=== PATIENT | male | born 1945 ===

== ENCOUNTER → 2023-12-08 11:02 | Outpatient (REF) | payer OTHER, SELFPAY ==
[2023-12-08 12:24] LABS: ALT (SGPT) 61 U/L (0-50); AST (SGOT) 44 U/L (17-59); Albumin 4.2 g/dl (3.5-5.0); Alkaline Phosphatase 127 U/L (38-126); Blood Urea Nitrogen 22 mg/dl (9-20); Calcium 9.4 mg/dl (8.4-10.2); Carbon Dioxide 25 mmol/L (22-30); Chloride 104 mmol/L (98-107); Glucose 85 mg/dl (70-99); HDL Cholesterol 50 mg/dl; LDL Cholesterol, Calculated 70 mg/dl; Potassium 4.1 mmol/L (3.5-5.1); Sodium 137 mmol/L (135-145); Total Bilirubin 0.8 mg/dl (0.2-1.3); Total Cholesterol 135 mg/dl (50-199); Total Protein 7.3 g/dl (6.3-8.2); Triglyceride 79 mg/dl (10-149); Very Low Density Lipoprotein 15 mg/dl (0-30); eGFR > 60.00
[2023-12-08 12:42] LABS: TSH 1.85 uIU/ml (0.47-4.68)
[2023-12-08 13:58] LABS: Glycohemoglobin (HgbA1c) 6.7 % (4.0-5.6)
== END ==
LOC: OLABPATH 11:02
PROVIDERS: ATTENDING PHYSICIAN Internal Medicine Cardiovascular Disease; FAMILY PHYSICIAN Internal Medicine; REFERRING PHYSICIAN Internal Medicine Endocrinology, Diabetes & Metabolism
DX: E11.65 Type 2 diabetes mellitus with hyperglycemia (principal); Z79.4 Long term (current) use of insulin; E78.5 Hyperlipidemia, unspecified
CPT/HCPCS: 36415; 80053; 80061; 82565; 83036; 84443

== ENCOUNTER → 2024-05-30 10:33 | Outpatient (REF) | payer OTHER, SELFPAY ==
[2024-05-30 12:19] LABS: ALT (SGPT) 42 U/L (0-50); AST (SGOT) 33 U/L (17-59); Albumin 3.4 g/dl (3.5-5.0); Alkaline Phosphatase 107 U/L (38-126); Blood Urea Nitrogen 18 mg/dl (9-20); Calcium 9.2 mg/dl (8.4-10.2); Carbon Dioxide 24 mmol/L (22-30); Chloride 104 mmol/L (98-107); Glucose 101 mg/dl (70-99); HDL Cholesterol 41 mg/dl; LDL Cholesterol, Calculated 54 mg/dl; Potassium 4.3 mmol/L (3.5-5.1); Sodium 139 mmol/L (135-145); Total Bilirubin 0.5 mg/dl (0.2-1.3); Total Cholesterol 108 mg/dl (50-199); Total Protein 5.9 g/dl (6.3-8.2); Triglyceride 65 mg/dl (10-149); Very Low Density Lipoprotein 13 mg/dl (0-30); eGFR > 60.00
[2024-05-30 13:15] LABS: Glycohemoglobin (HgbA1c) 7.2 % (4.0-5.6)
== END ==
LOC: OLABPATH 10:33
PROVIDERS: ATTENDING PHYSICIAN Internal Medicine Cardiovascular Disease; FAMILY PHYSICIAN Internal Medicine; OTHER PHYSICIAN Internal Medicine Endocrinology, Diabetes & Metabolism
DX: Z95.5 Presence of coronary angioplasty implant and graft (principal); E11.65 Type 2 diabetes mellitus with hyperglycemia; Z79.4 Long term (current) use of insulin
CPT/HCPCS: 36415; 80053; 80061; 83036; 84443

== ENCOUNTER → 2024-06-11 11:15 | Outpatient (REF) | payer OTHER, SELFPAY ==
[2024-06-11 13:18] LABS: INR 1.03; PT 13.5 Sec (11.4-14.6)
[2024-06-11 13:26] LABS: % Basophils 0.6 % (0-2); % Eosinophils 1.9 % (0-6); % Immature Granulocytes 0.4 % (0-0.5); % Lymphocytes 20.7 % (20.5-51.1); % Monocytes 7.5 % (1.7-9.3); % Neutrophils 68.9 % (42.2-75.2); Absolute Basophils 0.1 10^3/uL (0-0.2); Absolute Eosinophils 0.2 10^3/uL (0-0.7); Absolute Lymphocytes 1.7 10^3/uL (1.2-3.4); Absolute Monocytes 0.6 10^3/uL (0.1-0.6); Absolute Neutrophils 5.8 10^3/uL (1.4-6.5); Hematocrit 41.1 % (39.0-52.0); Hemoglobin 13.9 g/dL (13.0-18.0); Mean Corp Hgb Conc. 33.8 g/dL (33.0-37.0); Mean Corpuscular Hgb 34.2 pg (27.0-31.0); Mean Platelet Volume 10.4 fL (7.4-10.4); Nucleated Red Blood Cells % 0 % (-); Platelet Count 235 10^3/uL (130-400); Red Blood Cell Count 4.07 10^6/uL (4.70-6.10); Red Cell Dist. Width 13.4 % (11.5-14.5); White Blood Cell Count 8.4 10^3/uL (4.8-10.8)
== END ==
LOC: OLABPATH 11:15
PROVIDERS: ATTENDING PHYSICIAN Internal Medicine
DX: F03.90 Unspecified dementia, unspecified severity, without behavioral disturbance, psychotic disturbance, mood disturbance, and anxiety (principal); E08.9 Diabetes mellitus due to underlying condition without complications
CPT/HCPCS: 36415; 85025; 85610

== ENCOUNTER → 2024-06-20 09:41 | Outpatient (REF) | payer OTHER, SELFPAY ==
[2024-06-20 10:09] LABS: % Basophils 0.8 % (0-2); % Eosinophils 2.4 % (0-6); % Immature Granulocytes 0.1 % (0-0.5); % Lymphocytes 21.3 % (20.5-51.1); % Monocytes 8.8 % (1.7-9.3); % Neutrophils 66.6 % (42.2-75.2); Absolute Basophils 0.1 10^3/uL (0-0.2); Absolute Eosinophils 0.2 10^3/uL (0-0.7); Absolute Lymphocytes 1.8 10^3/uL (1.2-3.4); Absolute Monocytes 0.7 10^3/uL (0.1-0.6); Absolute Neutrophils 5.6 10^3/uL (1.4-6.5); Hematocrit 37.7 % (39.0-52.0); Hemoglobin 12.8 g/dL (13.0-18.0); Mean Corpuscular Hgb 33.6 pg (27.0-31.0); Mean Platelet Volume 10.5 fL (7.4-10.4); Nucleated Red Blood Cells % 0 % (-); Platelet Count 221 10^3/uL (130-400); Red Blood Cell Count 3.81 10^6/uL (4.70-6.10); Red Cell Dist. Width 13.3 % (11.5-14.5); White Blood Cell Count 8.4 10^3/uL (4.8-10.8)
[2024-06-20 10:10] LABS: INR 1.03; PT 13.6 Sec (11.4-14.6)
== END ==
LOC: OLABPATH 09:41
PROVIDERS: ATTENDING PHYSICIAN Internal Medicine
DX: F03.90 Unspecified dementia, unspecified severity, without behavioral disturbance, psychotic disturbance, mood disturbance, and anxiety (principal); E08.9 Diabetes mellitus due to underlying condition without complications
CPT/HCPCS: 36415; 85025; 85610

== ENCOUNTER → 2024-11-15 10:28 | Outpatient (REF) | payer OTHER, SELFPAY ==
[2024-11-15 11:59] LABS: % Basophils 0.7 % (0-2); % Eosinophils 3.9 % (0-6); % Immature Granulocytes 0.4 % (0-0.5); % Lymphocytes 18.9 % (20.5-51.1); % Monocytes 6.6 % (1.7-9.3); % Neutrophils 69.5 % (42.2-75.2); Absolute Basophils 0.1 10^3/uL (0-0.2); Absolute Eosinophils 0.4 10^3/uL (0-0.7); Absolute Lymphocytes 1.9 10^3/uL (1.2-3.4); Absolute Monocytes 0.7 10^3/uL (0.1-0.6); Absolute Neutrophils 6.9 10^3/uL (1.4-6.5); Hematocrit 44.6 % (39.0-52.0); Hemoglobin 13.9 g/dL (13.0-18.0); Mean Corp Hgb Conc. 31.2 g/dL (33.0-37.0); Mean Corpuscular Hgb 32.8 pg (27.0-31.0); Mean Corpuscular Volume 105.2 fL (80.0-94.0); Mean Platelet Volume 11.3 fL (7.4-10.4); Nucleated Red Blood Cells % 0 % (-); Platelet Count 171 10^3/uL (130-400); Red Blood Cell Count 4.24 10^6/uL (4.70-6.10); Red Cell Dist. Width 13.6 % (11.5-14.5); White Blood Cell Count 9.9 10^3/uL (4.8-10.8)
[2024-11-15 12:02] LABS: ALT (SGPT) 72 U/L (0-50); AST (SGOT) 37 U/L (17-59); Albumin 3.8 g/dl (3.5-5.0); Alkaline Phosphatase 91 U/L (38-126); Blood Urea Nitrogen 26 mg/dl (9-20); Carbon Dioxide 24 mmol/L (22-30); Chloride 110 mmol/L (98-107); Glucose 135 mg/dl (70-99); Sodium 144 mmol/L (135-145); Total Bilirubin 1.2 mg/dl (0.2-1.3); Total Protein 6.4 g/dl (6.3-8.2); eGFR > 60.00
== END ==
LOC: OLABPATH 10:28
PROVIDERS: ATTENDING PHYSICIAN Internal Medicine
DX: I10 Essential (primary) hypertension (principal); F02.A0 Dementia in other diseases classified elsewhere, mild, without behavioral disturbance, psychotic disturbance, mood disturbance, and anxiety; E78.5 Hyperlipidemia, unspecified
CPT/HCPCS: 36415; 80053; 85025

== ENCOUNTER 2024-12-04 06:07 | Inpatient (IN) | payer OTHER, SELFPAY ==
[2024-12-04 03:53] VITALS: BMI 24.7
[2024-12-04 04:00] VITALS: BP 117/64
[2024-12-04 04:34] LABS: Urine Albumin Negative (Neg - Trace); Urine Bilirubin Negative (Negative); Urine Character Clear (Clear); Urine Color Yellow; Urine Glucose 4+ (Negative); Urine Ketone 3+ (Negative); Urine Leukocyte Negative (Negative); Urine Nitrite Negative (Negative); Urine Occult Blood Negative (Negative); Urine Urobilinogen Negative (Neg - 1+)
[2024-12-04 04:35] LABS: % Basophils 0.5 % (0-2); % Immature Granulocytes 0.4 % (0-0.5); % Lymphocytes 9.7 % (20.5-51.1); % Monocytes 2.8 % (1.7-9.3); % Neutrophils 86.6 % (42.2-75.2); Absolute Lymphocytes 0.8 10^3/uL (1.2-3.4); Absolute Monocytes 0.2 10^3/uL (0.1-0.6); Hematocrit 42.4 % (39.0-52.0); Hemoglobin 14.1 g/dL (13.0-18.0); Mean Corp Hgb Conc. 33.3 g/dL (33.0-37.0); Mean Corpuscular Hgb 33.3 pg (27.0-31.0); Mean Platelet Volume 9.6 fL (7.4-10.4); Nucleated Red Blood Cells % 0 % (-); Platelet Count 260 10^3/uL (130-400); Red Blood Cell Count 4.24 10^6/uL (4.70-6.10); Red Cell Dist. Width 13.7 % (11.5-14.5); White Blood Cell Count 8.1 10^3/uL (4.8-10.8)
[2024-12-04 04:48] LABS: COVID-19 Antigen Negative (Negative)
--- NOTE | 2024-12-04 04:56 | ED.GENMED ---
History of Present Illness
General
Chief Complaint: Vomiting Blood
Source: family ( Lennie and nurse Coco from [facility]), ambulance crew and intermediate records
Exam Limitations: altered mental status and dementia
Time Seen by Provider: 12/04/24 03:52
Nursing documentation reviewed up to this point in time: agreed with
History of Present Illness
History of Present Illness:
Pleasantly demented 78-year-old male from [facility] presents to the emergency department after vomiting 'coffee ground emesis '. I spoke with Coco the nurse caring for him at [facility]. She stated that he had a one-time episode of
brownish-red vomit that looked like coffee grounds. Patient has advanced dementia and according to patient's advanced directive, he is comfort measures only without any significant interventions. I spoke with Lennie who allowed for IV fluids
and Protonix. She also will allow for anything that makes his stay more comfortable. She does not want any imaging at this point.
Review of Systems
Review of Systems
Allergies reviewed?: Yes
Unable to obtain full review of systems at this time due to: dementia
Other source history: family, intermediate, ambulance crew and transfer record
All Other Systems: Not applicable
ABD/GI: Reports vomiting; Denies bloody stools or black stools
Phy Exam
General Physical Exam
General Presentation: mild distress
General age: appears older than age
General Skin: warm and dry
General Habitus: elderly and frail
General Mental: confused and usual mental status (According to )
General Hydration: dry mucous membranes
Cardiovascular Exam
Cardiovascular Exam: tachycardia
Pulmonary Exam
Pulmonary Exam: lungs clear and no respiratory distress
Gastrointestinal Exam
Guaiac Status: negative
Neurological Exam
Neurological Exam: alert and oriented x3
Musculoskeletal Exam
Musculoskeletal Exam: full ROM
Skin Exam
Skin Exam: normal color and warm/dry
Psychiatric Exam
Psychiatric Exam: labile
Sepsis
Sepsis Screening
Sepsis Assessment: Sepsis
Sepsis Screen
Sepsis Screen: Sepsis
Date: 12/05/24
Time: 22:03
Course
Orders/Labs/Results
Orders:
Orders
12/04/24 04:08
Cardiac Monitoring- Treatment ONCE
IV Insert/Care/Rem.- Treatment PRN
Straight cath- Treatment ONCE
O2 Therapy [RESP] Urgent
Titrate/Wean O2 to maintain O2 sat greater than (%): 93
Special Instructions: TO MAINTAIN CONTINUOUS O2 SATS > OR = 93%
Pulse Ox/cont/shift [RESP] Urgent
Quantity: 1
Special Instructions: CONTINUOUS
12/04/24 04:10
Hemetest Stools As Directed
12/04/24 04:13
Blood Culture Urgent
FERNANDO Source: Blood/Venous
Specimen Description:
12/04/24 04:15
COVID-19 Antigen Urgent
Source: Nasal Swab
Complete Blood Count/With Diff Urgent
Comprehensive Metabolic Panel Urgent
Lactic Acid Q4H
Comment: ON ICE, CANCEL 2ND ORDER IF FIRST LACTIC ACID LEVEL <2
Urinalysis Reflex To Culture Urgent
Date Specimen was Collected: 12/04/24
Time Specimen was Collected: 04:08
Influenza A+B Rapid Molecular Urgent
FERNANDO Source: Nasal Swab
Specimen Description:
12/04/24 04:19
Blood Culture Urgent
FERNANDO Source: Blood/Venous
Specimen Description:
12/04/24 05:03
Pantoprazole 80 mg/100 ml Nss [Protonix] 80 mg in 100 ml IV NOW
Pantoprazole [Protonix IV] 80 mg IV NOW STA
12/04/24 05:25
Admit/Transfer Patient As Directed
Co-Sign Provider:
Level of Care: Inpatient admission
Assign to:: Medical/Surgical
Physician / Group: Arsalan
Diagnosis: UGIB
Reason for Hospitalization: UGIB
Expected length of stay greater than two midnights?: Yes
ELOS- Estimated Length of Stay in days: 2
I certify the patient meets the requirements for IP care: Yes
PRN Pain Medication Management As Directed
May give lesser potent ordered pain med per pt: Yes
preference::
Protocol:: Medication orders for pain may be administered in a
manner that supports deferring to patient preference
when the pt is:
- Requesting an ordered lesser potent pain medication.
Least to most potent pain medications are defined
as: acetaminophen < NSAID < tramadol < opioids
(morphine, oxycodone, hydromorphone).
- Requesting a lesser dose of the same medication IF
ORDERED.
- Requesting a less intrusive route of administration
if both routes are prescribed by the provider (PO <
IV).
12/04/24 05:26
Code Status As Directed
Resuscitation Status: Do not resuscitate
Reached after discussion with pt or family/Healthcare POA: Yes
12/04/24 05:27
DNR Bracelet Application ONCE
12/04/24 Breakfast
Clear Liquid
At Your Request: Non-Participating
12/04/24 08:14
Acetaminophen [Tylenol] 650 mg PO Q6HPRN PRN
Lactated Ringers [Lr] 1,000 ml IV 125 mls/hr
Lorazepam [Ativan] 0.5 mg PO Q6HPRN PRN
Memantine HCl [Namenda] 10 mg PO BID
12/04/24 08:14
Case Management Consult ONCE
Case Management Consult: Discharge Planning
Activity As Directed
Activity Level: Ambulate
With Assistance
Bladder Scan As Directed
Follow Bladder Retention/Intermittent Cath Algorithm?: Yes
PRN if no void in __ hours: 6
Frequency: Per Retention Algorithm
If Bladder Scan Result >: 400
then:: Straight cath
I/O [Intake/ Output] As Directed
Frequency: Per unit guidelines
Pneumatic Compression Sleeves As Directed
Type: Knee high
Straight Cath As Directed
Frequency: Per Retention Algorithm
Additional Instructions: straight cath as needed per acute urinary retention algorithm for 24 hrs
Additional Instructions: for bladder scan greater than 400 mL
Vital Signs As Directed
Frequency: Per unit guidelines
Oxygen Therapy [O2 Therapy] [RESP] Routine
Titrate/Wean O2 to maintain O2 sat greater than (%): 94
DX Deep Vein Thrombosis Video Routine
12/04/24 20:00
Pantoprazole [Protonix IV] 40 mg IV BID
12/04/24 22:00
insulin degludec [Tresiba FlexTouch U-200] 10 unit SC HS
12/05/24 06:32
Basic Metabolic Panel IN AM
Complete Blood Count/No Diff IN AM
Abnormal Lab Results
12/04/24
04:15
RBC 4.24 L 10^6/uL
(4.70-6.10)
MCV 100.0 H fL
(80.0-94.0)
MCH 33.3 H pg
(27.0-31.0)
Absolute Neuts (auto) 7.0 H 10^3/uL
(1.4-6.5)
Absolute Lymphs (auto) 0.8 L 10^3/uL
(1.2-3.4)
Neutrophils % 86.6 H %
(42.2-75.2)
Lymphocytes % 9.7 L %
(20.5-51.1)
BUN 35 H mg/dl
(9-20)
Glucose 185 H mg/dl
(70-99)
Lactic Acid 2.3 H mmol/L
(0.7-2.0)
Urine Ketones 3+ A
(Negative)
Urine Glucose 4+ A
(Negative)
12/04/24 04:15
12/04/24 04:15
Vital Signs
Initial and Last Documented VS:
Initial Vital Signs
Temp Pulse Resp Pulse Ox
100.8 F H 125 31 89
12/04/24 03:53 12/04/24 03:53 12/04/24 03:53 12/04/24 03:53
Last Documented Vital Signs
Temp Pulse Resp BP Pulse Ox
98.0 F 80 16 136/65 94
12/05/24 15:12 12/05/24 15:12 12/05/24 15:12 12/05/24 15:12 12/05/24 15:12
*Critical Care Note
Total Time (30-74mins, 75-104mins- exclusive of procedures): Not Applicable
Update Note
Update Note:
I had a conversation with patient's Lennie, verified by nursing that states that she wants him to be comfort measures only. She does not want any invasive testing or imaging. She is okay with fluids and Protonix.
ED Attending Note
-
Portions of this chart may have been created with voice recognition software.� Occasional wrong word or��sound alike� substitutions may have occurred due to the inherent limitations of voice recognition software.
Discharge Plan
Departure
Patient Disposition: Admit
Date of Disposition: 12/04/24
Time of Disposition: 05:00
Presentation/result/management discussed w/ accepting MD/DO: Hospitalist
Discharge Problem:
Acute upper GI bleeding, Comfort measures only status, DNR (do not resuscitate)
Interventions
Interventions:
*Risk Screen - Suicide Last Done: 12/04/24 03:53
*General Assessment Last Done: 12/04/24 03:53
*Neglect/Abuse Screening Last Done: 12/04/24 03:53
ED- Fall Risk Assessment Last Done: 12/04/24 03:53
*ED COVID-19 Vaccine History Last Done: 12/04/24 03:53
*Nursing Disposition Last Done: 12/04/24 18:46
RE-Kvsghg-Murnuaosbp Assessment Last Done: 12/04/24 04:20
ED- Cardiac Assessment Last Done: 12/04/24 04:20
ED- Pulmonary Assessment Last Done: 12/04/24 04:20
Discharge Date and Time
Discharge Date/Time: 12/04/24 18:46
[2024-12-04 05:00] VITALS: BP 118/68
[2024-12-04 05:02] LABS: ALT (SGPT) 47 U/L (0-50); AST (SGOT) 33 U/L (17-59); Albumin 3.8 g/dl (3.5-5.0); Alkaline Phosphatase 116 U/L (38-126); Blood Urea Nitrogen 35 mg/dl (9-20); Calcium 9.5 mg/dl (8.4-10.2); Carbon Dioxide 22 mmol/L (22-30); Chloride 100 mmol/L (98-107); Estimated Creatinine Clearance 58 ml/min; Glucose 185 mg/dl (70-99); Lactic Acid 2.3 mmol/L (0.7-2.0); Potassium 3.8 mmol/L (3.5-5.1); Sodium 142 mmol/L (135-145); Total Protein 6.7 g/dl (6.3-8.2); eGFR > 60.00
--- NOTE | 2024-12-04 05:08 | HPS.HSE ---
Family Physician
-
Family Physician: NOT KNOW UNKNOWN - PT DOES
Chief Complaint
-
Vomiting Up Blood
History of Present Illness
Patient is a 78y M with PMH significant for senile dementia / aphasia who presents to ED for evaluation of 'coffee ground emesis' noted at [place]. History obtained from ED staff / NH record. Patient reportedly had a single episode of brownish-red
emesis this evening. Patient is DNR / DNH; however, he was sent to the ED for further evaluation. ED physician spoke with who requested IVFs and Protonix but no other specific interventions. No further diagnostics, invasive studies /
procedures, etc.
Patient is non-verbal at baseline and cannot contribute to this history.
Medical History
Past Medical History
Past Medical History: Reports Other
Additional Past Medical History:
Dementia / Aphasia
DM-II
Hypertension
Dyslipidemia
Past Surgical History: Reports Other
Additional Past Surgical History:
Unknown
Social History
Unable to obtain full social history at this time due to: Dementia
Family History
Family History: Unable to Obtain
Allergies / Home Medications
Allergies reflects when Allergies were last updated in [employer].
Home Medications with original date entered in [employer]
Allergy/Medication List:
Allergies
Allergy/AdvReac Type Severity Reaction Status Date / Time
No Known Allergies Allergy Unverified 12/04/24 05:06
Home Medications
acetaminophen 325 mg tablet 650 mg PO Q6H PRN pain/mild fever 12/04/24
aspirin 81 mg tablet,delayed release 81 mg PO DAILY 12/04/24
atorvastatin 80 mg tablet 80 mg PO DAILY 12/04/24
benzonatate 100 mg capsule 100 mg PO TID PRN cough 12/04/24
dulaglutide 0.75 mg/0.5 mL subcutaneous pen injector (Trulicity) 0.75 mg SC QWEEK 12/04/24
empagliflozin 10 mg tablet (Jardiance) 10 mg PO DAILY 12/04/24
glipizide 10 mg tablet 10 mg PO BID 12/04/24
insulin degludec 200 unit/mL (3 mL) subcutaneous pen (Tresiba FlexTouch U-200 insulin) 10 unit SC HS 12/04/24
lorazepam 0.5 mg tablet 0.5 mg PO Q6 PRN anxiety 12/04/24
memantine 10 mg tablet 10 mg PO BID 12/04/24
ondansetron HCl 4 mg tablet 4 mg PO Q4H PRN nausea and vomiting 12/04/24
Review of Systems
-
Unable to obtain full review of systems at this time due to: Dementia
Physical Exam
Vital Signs
Vital Signs
Temp Pulse Resp BP Pulse Ox
100.8 F H 123 26 117/64 93
12/04/24 03:53 12/04/24 04:15 12/04/24 04:15 12/04/24 04:00 12/04/24 04:20
Physical Exam
General: Other (78y M in no apparent distress.)
HEENT: Other (Some residual of dark emesis in the mouth / lips.)
Respiratory: Other (Decreased at bases - diminished effort. No focal W/R/R.)
Cardiac: S1/S2 and Tachycardia; No Murmur
GI: Soft, Non Tender, Non Distended and Normal Bowel Sounds
Musculoskeletal: No Clubbing, No Cyanosis and No Edema
Neuro: Other (Awake. Tracks movement and sound. Does not speak or follow commands.)
Laboratory Results
-
12/04/24 04:15
12/04/24 04:15
Laboratory Results
Lactic Acid Cancelled 12/04/24 08:15
Total Bilirubin 1.0 mg/dl (0.2-1.3) 12/04/24 04:15
AST 33 U/L (17-59) 12/04/24 04:15
ALT 47 U/L (0-50) 12/04/24 04:15
Alkaline Phosphatase 116 U/L (38-126) 12/04/24 04:15
Impression/Plan
-
A/P: Patient is a 78y M with PMH significant for advanced dementia who presented to ED from local [place] for evaluation of dark / coffee ground emesis.
N/V
Possible GI Bleeding / Coffee Ground Emesis
Tachycardia
- Admit for further evaluation and treatment.
- requesting IVFs and Protonix - but no other therapies / evaluations at this time.
- Follow for changes in vital signs.
- Monitor for any evidence of discomfort and treat supportively.
- Case Management evaluation for Hospice evaluation / discussions.
Senile Dementia
- Stable / non-verbal as per baseline.
- Continue current meds including Namenda / PRN lorazepam.
DM-II
- Stable. Hold PO medications.
- Continue basal insulin + SSI.
DVT Prophylaxis: SCDs
Code Status: DNR
[2024-12-04 09:33] VITALS: BP 131/79
[2024-12-04] MEDS: LR 1000 IV ×2 (09:43→18:19)
[2024-12-04] MEDS: TYLENOL 650 MG PO (09:45)
[2024-12-04] MEDS: NAMENDA 10 MG PO ×2 (09:45→21:00)
[2024-12-04] MEDS: PROTONIX IV 80 MG IV (09:47)
[2024-12-04] MEDS: NSS (PRESERVATIVE FREE) 20 ML IV (09:47)
--- NOTE | 2024-12-04 12:50 | CM ---
Addendum entered by Aundrea Goldman RN 12/04/24 15:46:
CM reviewed medical records. Plan for continued supportive treatment at this time and no hospice discussion at this time. CM will continue to follow as needed.
Addendum entered by Aundrea Goldman RN 12/04/24 13:38:
CM spoke with patient's who would be agreeable to hospice at the [facility]. Patient's does have further questions for medical team. CM updated hospitalist.
Addendum entered by Aundrea Goldman RN 12/04/24 13:19:
Adelaida spoke with REYNALDO Patterson from [facility] with update. Yesenia confirmed that [facility]'s preferred Hospice [facility] [phone].
Addendum entered by Aundrea Goldman RN 12/04/24 12:58:
CM left message for to discuss discharge planning options.
Original Note:
ADELAIDA left message for nursing at [facility] to discuss discharge planning.
[2024-12-04 13:12] VITALS: BP 118/68
--- NOTE | 2024-12-04 13:20 | W.PN.UPDATE ---
Update Note
Progress Note Update
Seen and examined independent of overnight physician. Patient with episode of nausea and vomiting at the senior care. Patient spouse at bedside state there is a 'viral bug' at senior care. Multiple members with similar symptoms. Patient
with episode of nausea vomiting and senior care with concern for possible hematemesis. No hematemesis since admitted to hospital. Patient did spike a fever earlier today. Spouse does not want any aggressive measures including any procedures.
Wants patient to be comfortable and agreed for antibiotics, IV fluids and medications if needed.
General: Other (78y M in no apparent distress.)
HEENT: dry mucous membrances
Respiratory: Other (Decreased at bases - diminished effort. No focal W/R/R.)
Cardiac: S1/S2 and Tachycardia; No Murmur
GI: Soft, Non Tender, Non Distended and Normal Bowel Sounds
Musculoskeletal: No Clubbing, No Cyanosis and No Edema
Neuro: Other (Awake. Tracks movement and sound. Does not speak or follow commands.)
A/P: Patient is a 78y M with PMH significant for advanced dementia who presented to ED from local [place] for evaluation of dark / coffee ground emesis.
Nausea, vomiting likely secondary to while gastroenteritis
- Admit for further evaluation and treatment.
- requesting IVFs and Protonix - but no other therapies / evaluations at this time.
- Follow for changes in vital signs.
- Monitor for any evidence of discomfort and treat supportively.
- Trend H&H. Advance to full's.
Severe constipation/fecal impaction
Enema and aggressive bowel regimen started
Fever likely secondary to body ENTERITIS versus aspiration pneumonia
-Chest x-ray noted. Start patient on Unasyn.
Senile Dementia
- Stable / non-verbal as per baseline.
- Continue current meds including Namenda / PRN lorazepam.
DM-II
- Stable. Hold PO medications.
- Continue basal insulin + SSI.
DVT Prophylaxis: SCDs
Code Status: DNR
Discussed with patient's spouse at bedside in detail.
[2024-12-04] MEDS: FLEET MINERAL OIL ENEMA 133 ML RECTAL (14:28)
--- NOTE | 2024-12-04 14:44 | PTCARENOTE ---
Patient having heart rate 127 and rectal temp 99.8. Aguada texted Dr Beckham, no new orders noted.
[2024-12-04] MEDS: UNASYN IV ×2 (15:50→21:00)
[2024-12-04] MEDS: LIPITOR 80 MG PO (18:21)
[2024-12-04 19:45] VITALS: BP 133/80; BMI 24.3
--- NOTE | 2024-12-04 19:52 | PTCARENOTE ---
report called to floor, pt transported without issue
[2024-12-04] MEDS: PROTONIX IV 40 MG IV (21:00)
[2024-12-04] MEDS: NSS (PRESERVATIVE FREE) 10 ML IV (21:00)
[2024-12-04] MEDS: SENOKOT-S 1 TABLET PO (21:20)
[2024-12-04] MEDS: DULCOLAX 10 MG PO (21:36)
[2024-12-04 21:52] LABS: Glucose - Point of Care 262 mg/dl (70-99)
[2024-12-04] MEDS: LANTUS 0.1 UNITS SC (21:52)
[2024-12-05] MEDS: UNASYN IV ×3 (01:24→13:13)
[2024-12-05 03:26] VITALS: BP 140/49
[2024-12-05 06:00] VITALS: BMI 25.4
[2024-12-05] MEDS: NAMENDA 10 MG PO (07:26)
[2024-12-05] MEDS: NSS (PRESERVATIVE FREE) 10 ML IV (07:26)
[2024-12-05] MEDS: SENOKOT-S 1 TABLET PO (07:26)
[2024-12-05] MEDS: PROTONIX IV 40 MG IV (07:26)
[2024-12-05 07:50] VITALS: BP 131/65
[2024-12-05 08:01] LABS: Hematocrit 32.7 % (39.0-52.0); Hemoglobin 11.1 g/dL (13.0-18.0); Mean Corp Hgb Conc. 33.9 g/dL (33.0-37.0); Mean Corpuscular Hgb 34.4 pg (27.0-31.0); Mean Corpuscular Volume 101.2 fL (80.0-94.0); Mean Platelet Volume 9.7 fL (7.4-10.4); Platelet Count 205 10^3/uL (130-400); Red Blood Cell Count 3.23 10^6/uL (4.70-6.10); Red Cell Dist. Width 14.1 % (11.5-14.5); White Blood Cell Count 8.6 10^3/uL (4.8-10.8)
[2024-12-05 08:19] LABS: Glucose - Point of Care 148 mg/dl (70-99)
[2024-12-05 09:05] LABS: Blood Urea Nitrogen 53 mg/dl (9-20); Calcium 8.9 mg/dl (8.4-10.2); Carbon Dioxide 23 mmol/L (22-30); Chloride 115 mmol/L (98-107); Estimated Creatinine Clearance 64 ml/min; Glucose 158 mg/dl (70-99); Potassium 3.6 mmol/L (3.5-5.1); Sodium 146 mmol/L (135-145); eGFR > 60.00
--- NOTE | 2024-12-05 11:33 | W.PN.HOSP.TC ---
Addendum entered and electronically signed by Tito Beckham MD 12/05/24 11:46:
Discussed with patient spouse and regarding patient mild hyponatremia of sodium 146. Per spouse she would like [facility] as she would like to avoid hospital-acquired delirium. Spouse also stated patient has no trouble drinking
liquids and she would encourage him to drink more water. Spouse eager to get patient discharged to [facility] as would like to avoid prolonged hospitalization. Patient's spouse verbalized understanding with the sodium level and would like him to go
[facility] to [facility]. Per CM, SNF can take him back today.
Original Note:
Today's Communication/Plan
-
DC to SNF
P.o. antibiotic
Aggressive bowel regimen
Assessment / Plan
Assessment / Plan
General: Other (78y M in no apparent distress.)
HEENT: dry mucous membrances
Respiratory: Other (Decreased at bases - diminished effort. No focal W/R/R.)
Cardiac: S1/S2 and Tachycardia; No Murmur
GI: Soft, Non Tender, Non Distended and Normal Bowel Sounds
Musculoskeletal: No Clubbing, No Cyanosis and No Edema
Neuro: Other (Awake. Tracks movement and sound. Does not speak or follow commands.)
A/P: Patient is a 78y M with PMH significant for advanced dementia who presented to ED from local [place] for evaluation of dark / coffee ground emesis.
Nausea, vomiting likely secondary to Viral gastroenteritis
- requesting IVFs and Protonix - but no other therapies / evaluations at this time.
- Follow for changes in vital signs.
- Monitor for any evidence of discomfort and treat supportively.
- Mild drop in hemoglobin secondary to dilutional effect. Patient with no gross bleeding. No hematemesis. No melanotic stools. No luminal bleeding noted.
-P er spouse assisted with viral gastroenteritis on the floor.
Severe constipation/fecal impaction
Enema and aggressive bowel regimen started
Patient having bowel movements.
Fever likely secondary to body ENTERITIS versus aspiration pneumonia
-Chest x-ray noted. Start patient on Unasyn. Transition to p.o. Augmentin on discharge.
Senile Dementia
Dysphagia-eats pur�ed diet and assisted
- Stable / non-verbal as per baseline.
- Continue current meds including Namenda / PRN lorazepam.
DM-II
- Stable. Hold PO medications.
- Continue basal insulin + SSI.
DVT Prophylaxis: SCDs
Code Status: DNR
Discussed with patient's spouse at bedside in detail on daily basis.
Dispo back to SNF. Medically stable. Spouse agreed and verbalized understanding for discharge.
More than 30 minutes spent in discharge including
Final examination of the patient
Summarizing hospital stay
Instructions for continuing care to all relevant caregivers
Preparation of discharge records, prescriptions, and referral forms
Total time spent (in minutes): 55
Anticipated Discharge: Today
Subjective/Interval History
-
Date of Service: December 05, 2024
No episode of nausea or vomiting
No gross melanotic stools
Having bowel movement
On room air
Afebrile
Objective Data
-
Labs:
Laboratory Results
12/05/24 12/05/24
00:30 06:32
WBC 8.6
Hgb Cancelled 11.1 L D
Hct Cancelled 32.7 L
Plt Count 205 D
Sodium 146 H
Potassium 3.6
Chloride 115 H
Carbon Dioxide 23
BUN 53 H
Creatinine 1.0
Glucose 158 H
Calcium 8.9
Vital Signs:
Vital Signs
Temp Pulse Resp BP Pulse Ox
98.7 F 86 16 131/65 95
12/05/24 07:50 12/05/24 07:50 12/05/24 07:50 12/05/24 07:50 12/05/24 10:32
I&O
12/04/24 12/05/24 12/06/24
06:59 06:59 06:59
Intake Total 440 / 440
Balance 440 / 440
Data Reviewed
-
Total Time Spent with Patient (in minutes): 55
--- NOTE | 2024-12-05 11:37 | CM ---
Reviewed the chart notes. CM continues to be available to patient/family and is monitoring medical plan for needs at discharge.
Plan: Discharge back to [facility] today.
Call report to: [phone] - ask for Federica
Fax report to: [phone]
Medical and necessity forms on chart.
--- NOTE | 2024-12-05 11:40 | W.DCSUMMARY ---
Discharge Summary
Discharge Data
Date of Admission: 12/04/24
Date of Discharge: 12/05/24
-
Pending Results: No
Hospital Course
78-year-old male past medical history of advanced dementia, dysphagia, diabetes mellitus, hyperlipidemia, presenting from [facility] with complaints of dark coffee-ground emesis. Patient did not have any episode of hematemesis. Patient
hemoglobin was 10 and found to be stable. Patient without any melanotic stools. No luminal bleeding was noted. Patient blood pressure was stable. Diet was advanced from liquid to regular diet. Per spouse patient eats a pur�ed diet at nursing
home. Patient also with abdominal distention abdominal x-ray was done which showed significant of stool burden. Patient received enema and aggressive bowel regimen. Patient was having bowel movements without any difficulty. Patient also spiked
fever. Chest x-ray with concern for aspiration during episode of nausea vomiting. Patient was on Unasyn was transitioned to Augmentin on discharge. Patient and spouse did not want patient to undergo aggressive management and/or intervention and
procedure. She just wanted patient to be comfortable. Discussed with patient spouse regarding patient mild hypernatremia of sodium 146. Per spouse she would like [facility] as she would like to avoid hospital-acquired
delirium. Spouse also stated patient has no trouble drinking liquids and she would encourage him to drink more water. Spouse eager to get patient discharged to [facility] as would like to avoid prolonged hospitalization. Patient's spouse verbalized
understanding with the sodium level and would like [facility] to [facility]. Per CM, SNF can take him back today. Patient will transition to pur�ed diet. Patient afebrile. Patient was on room air.
Discharge Plan
-
Patient Disposition: Long Term/SNF
Discharge Diagnosis/Procedures: Nausea and vomiting likely second to viral gastroenteritis
Severe constipation/fecal impaction
Fevers likely secondary to enteritis versus aspiration pneumonia
Condition: Fair
Diet: Other diet
Additional Diets: Puree diet
Activity: As tolerated
Driving Restrictions: No driving
Blood Work: Repeat BMP in 3 to 4 days via primary doctor
Activity Restrictions/Additional Instructions:
Wound Care Instructions
Resume prior wound care R upper neck biopsy site wound.
Follow up with coater operator.
Elevate heels off bed with pillows or soft heel relief boots.
Turning schedule.
Evaluate for an air mattress.
Pressure redistributing chair cushion (i.e. Air, Gel).
Follow up at wound care center if needed, call for an appointment.
Referrals:
UNKNOWN - PT DOES,NOT KNOW [Family Provider] -
Prescriptions:
New
sennosides-docusate sodium 8.6-50 mg Tablet
1 tab PO BID Qty: 30 0RF
polyethylene glycol 3350 [Miralax] 17 gram/dose powder
4 g PO DAILY Qty: 119 0RF
psyllium husk [Metamucil] 0.4 gram capsule
0.4 g PO DAILY Qty: 30 0RF
amoxicillin-pot clavulanate 875-125 mg tablet
1 tab PO BID Qty: 12 0RF
pantoprazole [Protonix] 40 mg tablet,delayed release (DR/EC)
40 mg PO DAILY Qty: 30 0RF
Continued
atorvastatin 80 mg Tablet
80 mg PO QPM
acetaminophen 325 mg Tablet
650 mg PO Q6HPRN PRN (Reason: mild pain/mild fever)
ondansetron HCl 4 mg Tablet
4 mg PO Q4HPRN PRN (Reason: nausea and vomiting)
glipizide 10 mg Tablet
10 mg PO BID
aspirin 81 mg Tablet,Delayed Release (Dr/Ec)
81 mg PO DAILY
lorazepam 0.5 mg Tablet
0.5 mg PO Q6HPRN PRN (Reason: anxiety)
benzonatate 100 mg Capsule
100 mg PO TIDPRN PRN (Reason: cough)
memantine 10 mg Tablet
10 mg PO BID
insulin degludec [Tresiba FlexTouch U-200] 200 unit/mL (3 mL) Insulin Pen
10 unit SC HS
Jardiance 10 mg Tablet
10 mg PO DAILY
therapeutic multivitamin Tablet
1 tab PO DAILY
Lorazepam 0.5 mg/ml gel
1 applic topical Q6HPRN PRN (Reason: anxiety)
Trulicity 0.75 mg/0.5 mL Pen Injector
0.75 mg SC TAPIA
Discharge Orders:
Discharge Patient (As Directed); Ordered 12/05/24
Ordered By: Tito Beckham
Discharge Date and Time
Print Language: TAMAZIGHT
--- NOTE | 2024-12-05 11:48 | WOUNDNOTE ---
[facility] RN note: Patient admitted with UGIB, enteritis vs aspiration pneumonia. Patient lives at [facility]. visiting patient.
See H&P for complete history.
PMH: constipation, fecal impaction, dementia, DM.
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 Current local care is daily antibiotic ointment and cover dressing daily. Ulcer mostly pink
with scant yellow fibrin. Heels blanchable red. Perianal skin MASD (red and intact). Arm bruises.
Appetite: good.
Pressure redistribution devices in place: [employer] Air. Patient does not turn self.
Plan: R proximal neck near ear dressing changed. Some bleeding occurred which stopped with pressure. Sacral shaped silicone border foam dressing applied. Protective foam dressing changed on heels. Patient incontinent of a smear of soft brown stool.
Ursula care given. Patient turned to L semi side lying position with help from [facility] RN apartment assistant manager Andrea. Heels off bed with pillow and air chair cushion. Pillow between legs. t/c SPD and ordered TruVue lite heel relief boots.
Will confirm orders with Dr. Beckham and discussed with REYNALDO Sutton.
Care plan to be updated and will follow as needed.
Note to case management of equipment requested for discharge: Evaluate for an an air mattress.
Recommend follow up with x ray control equipment repairer.
--- NOTE | 2024-12-05 11:50 | WOUNDNOTE ---
[facility] RN note: Patient admitted with UGIB, enteritis vs aspiration pneumonia. Patient lives at [facility]. visiting patient.
See H&P for complete history.
PMH: constipation, fecal impaction, dementia, DM.
Wound Location and type/assessment: Patient admitted with: R just below the ear to subcutaneous layer biopsy site for squamous cell cancer done by [facility]. Current local care is daily antibiotic ointment and cover dressing daily. Ulcer
mostly pink with scant yellow fibrin. Heels blanchable red. Perianal skin MASD (red and intact). Arm bruises.
Appetite: good.
Pressure redistribution devices in place: [employer] Air. Patient does not turn self.
Plan: R proximal neck near ear dressing changed. Some bleeding occurred which stopped with pressure. Sacral shaped silicone border foam dressing applied. Protective foam dressing changed on heels. Patient incontinent of a smear of soft brown stool.
Ursula care given. Patient turned to L semi side lying position with help from [facility] RN assistant floor covering printer Andrea. Heels off bed with pillow and air chair cushion. Pillow between legs. t/c SPD and ordered TruVue lite heel relief boots.
Will confirm orders with Dr. Beckham and discussed with REYNALDO Sutton.
Care plan to be updated and will follow as needed.
Note to case management of equipment requested for discharge: Evaluate for an an air mattress.
Recommend follow up with real estate leasing manager.
[2024-12-05 11:56] LABS: Glucose - Point of Care 173 mg/dl (70-99)
[2024-12-05] MEDS: NOVOLOG FLEXPEN-LOW RESISTANCE 1 UNITS SC (12:32)
--- NOTE | 2024-12-05 12:32 | WOUNDNOTE ---
RIGHT BELOW EAR
--- NOTE | 2024-12-05 12:32 | WOUNDNOTE ---
RIGHT BELOW EAR
--- NOTE | 2024-12-05 12:34 | WOUNDNOTE ---
LEFT LOWER ANTERIOR LEG
--- NOTE | 2024-12-05 12:35 | WOUNDNOTE ---
RIGHT LATERAL FOOT/HEEL
[2024-12-05 15:12] VITALS: BP 136/65
--- NOTE | 2024-12-05 16:58 | PTCARENOTE ---
Patient discharged back to [facility], report given to Federica at facility. IV and condom catheter removed by this RN, patient changed into fresh brief prior to transport. Discharge vitals stable. Belongings given to Acute Care transport team, at
bedside for discharge. Patient discharged with heel boots in place.
== END 2024-12-05 17:00 | disposition home or self-care (01) | DRG 377 ==
LOC: 2 NORTH 06:07
PROVIDERS: ADMITTING PHYSICIAN Hospitalist; ATTENDING PHYSICIAN Hospitalist; EMERGENCY PHYSICIAN Student in an Organized Health Care Education/Training Program
DX: K92.0 Hematemesis (principal); J69.0 Pneumonitis due to inhalation of food and vomit; F03.94 Unspecified dementia, unspecified severity, with anxiety; R47.01 Aphasia; E87.0 Hyperosmolality and hypernatremia; A08.4 Viral intestinal infection, unspecified; K56.41 Fecal impaction; Z66 Do not resuscitate; E11.9 Type 2 diabetes mellitus without complications; I10 Essential (primary) hypertension; E78.5 Hyperlipidemia, unspecified; Z79.82 Long term (current) use of aspirin; Z79.4 Long term (current) use of insulin; Z79.84 Long term (current) use of oral hypoglycemic drugs; Z79.85 Long-term (current) use of injectable non-insulin antidiabetic drugs; Z11.52 Encounter for screening for COVID-19
CPT/HCPCS: 51701; 71046; 74019; 80048; 80053; 81003; 82962; 83605; 85025; 85027; 87040; 87070; 87502; 87811; 94760; 96374; 99285

== ENCOUNTER → 2025-01-01 10:20 | Outpatient (REF) | payer OTHER, SELFPAY ==
[2025-01-01 10:46] LABS: % Basophils 1.4 % (0-2); % Eosinophils 4.9 % (0-6); % Immature Granulocytes 0.2 % (0-0.5); % Monocytes 9.5 % (1.7-9.3); Absolute Basophils 0.1 10^3/uL (0-0.2); Absolute Eosinophils 0.3 10^3/uL (0-0.7); Absolute Lymphocytes 1.7 10^3/uL (1.2-3.4); Absolute Monocytes 0.6 10^3/uL (0.1-0.6); Absolute Neutrophils 3.6 10^3/uL (1.4-6.5); Hematocrit 33.7 % (39.0-52.0); Hemoglobin 11.2 g/dL (13.0-18.0); Mean Corp Hgb Conc. 33.2 g/dL (33.0-37.0); Mean Corpuscular Hgb 33.4 pg (27.0-31.0); Mean Corpuscular Volume 100.6 fL (80.0-94.0); Mean Platelet Volume 10.7 fL (7.4-10.4); Nucleated Red Blood Cells % 0 % (-); Platelet Count 195 10^3/uL (130-400); Red Blood Cell Count 3.35 10^6/uL (4.70-6.10); Red Cell Dist. Width 14.9 % (11.5-14.5); White Blood Cell Count 6.3 10^3/uL (4.8-10.8)
[2025-01-01 11:03] LABS: ALT (SGPT) 30 U/L (0-50); AST (SGOT) 24 U/L (17-59); Albumin 3.1 g/dl (3.5-5.0); Alkaline Phosphatase 111 U/L (38-126); Blood Urea Nitrogen 13 mg/dl (9-20); Calcium 8.9 mg/dl (8.4-10.2); Carbon Dioxide 27 mmol/L (22-30); Chloride 109 mmol/L (98-107); Glucose 101 mg/dl (70-99); Potassium 4.3 mmol/L (3.5-5.1); Sodium 140 mmol/L (135-145); Total Bilirubin 0.5 mg/dl (0.2-1.3); Total Protein 5.5 g/dl (6.3-8.2); eGFR > 60.00
== END ==
LOC: OLABPATH 10:20
PROVIDERS: ATTENDING PHYSICIAN Internal Medicine
DX: R79.9 Abnormal finding of blood chemistry, unspecified (principal); E10.9 Type 1 diabetes mellitus without complications
CPT/HCPCS: 36415; 80053; 85025

== ENCOUNTER → 2025-06-03 10:00 | Outpatient (REF) | payer OTHER, SELFPAY ==
[2025-06-03 11:02] LABS: Urine Character Clear (Clear)
== END ==
LOC: OLABPATH 10:00
PROVIDERS: ATTENDING PHYSICIAN Internal Medicine
DX: R31.0 Gross hematuria (principal); N39.0 Urinary tract infection, site not specified
CPT/HCPCS: 81003; 87086